=== PATIENT | female | born 1980 | race Caucasian/White ===

== ENCOUNTER 2017-08-27 04:39 | Emergency (ER) | payer BC ==
[~2017-08-27] VITALS: Ht 162.6 cm; Wt 90.7 kg
--- NOTE | 2017-08-27 04:52 | PHYS DOC ---
Adult General Chief Complaint Chief Complaint: CHEST PAIN HPI HPI Patient is a 37 year old female who presents with left-sided chest pressure and arm/shoulder pain on the left side. She states she had a little bit discomfort last night and then went to bed and woke up about an hour prior to arrival with the pain there. She states she felt short of breath when she ambulates her car. She is otherwise a pains been constant. She also felt sweaty when she woke up with this discomfort. She states nothing makes it better or worse at this time. She denies any nausea or vomiting. She states she does have a history of acid reflux and belching and is been taking antacids for this. She denies any fevers or chills. She states that she had some coronary disease in grandma and grandpa but nothing with her parents. She denies a history of smoking. Review of Systems Review of Systems Constitutional: Denies fever or chills [] Eyes: Denies change in visual acuity, redness, or eye pain [] HENT: Denies nasal congestion or sore throat [] Respiratory: Denies cough or shortness of breath [] Cardiovascular: No additional information not addressed in HPI [] GI: Denies abdominal pain, nausea, vomiting, bloody stools or diarrhea [] : Denies dysuria or hematuria [] Musculoskeletal: Denies back pain or joint pain [] Integument: Denies rash or skin lesions [] Neurologic: Denies headache, focal weakness or sensory changes [] Endocrine: Denies polyuria or polydipsia [] All other systems were reviewed and found to be within normal limits, except as documented in this note. Allergies Allergies Allergies Coded Allergies Type Severity Reaction Last Updated Verified No Known Drug Allergies 08/27/17 No Physical Exam Physical Exam Constitutional: Well developed, well nourished, no acute distress, non-toxic appearance. [] HENT: Normocephalic, atraumatic, bilateral external ears normal, oropharynx moist, no oral exudates, nose normal. [] Eyes: PERRLA, EOMI, conjunctiva normal, no discharge. [] Neck: Normal range of motion, no tenderness, supple, no stridor. [] Cardiovascular:Heart rate regular rhythm, no murmur [] Lungs & Thorax: Bilateral breath sounds clear to auscultation [] Abdomen: Bowel sounds normal, soft, no tenderness, no masses, no pulsatile masses. [] Skin: Warm, dry, no erythema, no rash. [] Back: No tenderness, no CVA tenderness. [] Extremities: No tenderness, no cyanosis, no clubbing, ROM intact, no edema. [] Neurologic: Alert and oriented X 3, normal motor function, normal sensory function, no focal deficits noted. [] Psychologic: Affect normal, judgement normal, mood normal. [] Current Patient Data Vital Signs Vital Signs Date Time Temp Pulse Resp B/P (MAP) Pulse Ox O2 Delivery O2 Flow Rate FiO2 08/27/17 07:14 95 16 145/84 (104) 99 Room Air 08/27/17 04:51 98.3 98.3 Lab Values Laboratory Tests Test 08/27/17 04:57 08/27/17 05:40 08/27/17 05:51 08/27/17 05:52 White Blood Count 7.5 x10^3/uL (4.0-11.0) Red Blood Count 4.75 x10^6/uL (3.50-5.40) Hemoglobin 13.9 g/dL (12.0-15.5) Hematocrit 42.1 % (36.0-47.0) Mean Corpuscular Volume 89 fL (79-100) Mean Corpuscular Hemoglobin 29 pg (25-35) Mean Corpuscular Hemoglobin Concent 33 g/dL (31-37) Red Cell Distribution Width 14.0 % (11.5-14.5) Platelet Count 327 x10^3/uL (140-400) Neutrophils (%) (Auto) 44 % (31-73) Lymphocytes (%) (Auto) 46 % (24-48) Monocytes (%) (Auto) 6 % (0-9) Eosinophils (%) (Auto) 3 % (0-3) Basophils (%) (Auto) 1 % (0-3) Neutrophils # (Auto) 3.3 x10^3uL (1.8-7.7) Lymphocytes # (Auto) 3.4 x10^3/uL (1.0-4.8) Monocytes # (Auto) 0.5 x10^3/uL (0.0-1.1) Eosinophils # (Auto) 0.2 x10^3/uL (0.0-0.7) Basophils # (Auto) 0.1 x10^3/uL (0.0-0.2) Sodium Level 137 mmol/L (136-145) Potassium Level 3.5 mmol/L (3.5-5.1) Chloride Level 104 mmol/L (98-107) Carbon Dioxide Level 23 mmol/L (21-32) Anion Gap 10 (6-14) Blood Urea Nitrogen 10 mg/dL (7-20) Creatinine 0.7 mg/dL (0.6-1.0) Estimated GFR (Cockcroft-Gault) 93.6 Glucose Level 89 mg/dL (70-99) Calcium Level 8.9 mg/dL (8.5-10.1) Magnesium Level 2.0 mg/dL (1.8-2.4) Total Bilirubin 0.4 mg/dL (0.2-1.0) Direct Bilirubin 0.1 mg/dL (0.0-0.2) Aspartate Amino Transferase (AST) 16 U/L (15-37) Alanine Aminotransferase (ALT) 17 U/L (14-59) Alkaline Phosphatase 74 U/L (46-116) Creatine Kinase 75 U/L (26-192) Creatine Kinase MB (Mass) < 0.5 ng/mL (0.0-3.6) Creatine Kinase MB Relative Index % (0-4) Troponin I Quantitative < 0.017 ng/mL (0.000-0.055) LB-Xnw-T-Type Natriuretic Peptide 38 pg/mL (0-124) Total Protein 7.5 g/dL (6.4-8.2) Albumin 3.7 g/dL (3.4-5.0) Lipase 172 U/L (73-393) Thyroid Stimulating Hormone (TSH) 2.939 uIU/mL (0.358-3.74) Prothrombin Time 12.7 SEC (11.7-14.0) Prothrombin Time INR 1.0 (0.8-1.1) D-Dimer (Ana) 0.38 ug/mlFEU (0.00-0.50) Urine Collection Type Unknown Urine Color Yellow Urine Clarity Clear Urine pH 6.0 Urine Specific [place] 1.010 Urine Protein Negative mg/dL (NEG-TRACE) Urine Glucose (UA) Negative mg/dL (NEG) Urine Ketones (Stick) Negative mg/dL (NEG) Urine Blood Negative (NEG) Urine Nitrite Negative (NEG) Urine Bilirubin Negative (NEG) Urine Urobilinogen Dipstick 0.2 mg/dL (0.2 mg/dL) Urine Leukocyte Esterase Negative (NEG) Urine RBC 0 /HPF (0-2) Urine WBC 0 /HPF (0-4) Urine Squamous Epithelial Cells Few /LPF Urine Bacteria 0 /HPF (0-FEW) Urine Opiates Screen Neg (NEG) Urine Methadone Screen Neg (NEG) Urine Barbiturates Neg (NEG) Urine Phencyclidine Screen Neg (NEG) Urine Amphetamine/Methamphetamine Neg (NEG) Urine Benzodiazepines Screen Pos (NEG) Urine Cocaine Screen Neg (NEG) Urine Cannabinoids Screen Neg (NEG) Urine Ethyl Alcohol Neg (NEG) POC Urine HCG, Qualitative Hcg negative (Negative) Laboratory Tests 08/27/17 04:57 Laboratory Tests 08/27/17 04:57 EKG EKG EKG shows sinus rhythm with rate of [address] elevations, T-wave inversion noted in lead 3, normal axis, QTC 434 ms, as interpreted by me. A previous EKGs for comparison[] Radiology/Procedures Radiology/Procedures [] Course & Med Decision Making Course & Med Decision Making Pertinent Labs and Imaging studies reviewed. (See chart for details) patient's care was turned over to me at 6 AM this morning pending troponin and d-dimer. Patient is pain that began yesterday afternoon described as chest pressure center of her chest. She has a history of reflux of which she just recently started treatment for Protonix. sHe feels markedly better over her evaluation. []Differential diagnosis for chest pain: Pericarditis, myocarditis, endocarditis , pneumothorax, pneumonia, aortic dissection, esophageal spasm, esophagitis, peptic ulcer disease, acute coronary syndrome, mediastinitis, Boerhaave syndrome , musculoskeletal chest wall pain, costochondritis, intercostal strain, rib fracture, pulmonary contusion, pneumonitis, pleural effusion, pericardial effusion, pericardial tamponode, and pleurisy. DTRs are read by me, chest x-ray is reviewed by me and laboratory work time is now 7:20 AM. Patient is pain-free she is noted to be intermittently tachycardic although she says this is chronic for her she has no symptoms at this time her heart rate is 86. She denied talked about risks factors. History: History patient is low risk with a score of 0 and can be discharged safely with cardiology follow-up. Denied discussed this plan and she is willing to do so. Highly suspicious 2 points moderately suspicious 1. slightly suspicious 0 point EKG: ST segment depression 2. nonspecific repolarization disturbance 1. normal 0 point Age: Greater than 65 2 points, 65-45 1., less than 45 years old 0 points Risk factors:> 3 risk factors 2 points, 1-2 risk factors one point, no risk factors 0 point Troponin: > 2 times normal 2 points, 1-2 times normal 1., normal limits 0 point Total score: Score % pts MACE/n MACE Policy 0-3 32% 1.9% 0.05% Discharge 4-6 51% 413/3136 13% 1.3% Observation Risk management 7-10 17% 518/1045 50% 2.8% Observation Treatment, CAG Dragon Disclaimer Dragon Disclaimer This electronic medical record was generated, in whole or in part, using a voice recognition dictation system. Departure Departure Impression: Primary Impression: Chest pain Disposition: HOME, SELF-CARE Condition: IMPROVED Referrals: NO PCP (PCP) Patient Instructions: Chest Pain (Nonspecific) Additional Instructions: My discharge plan Although you have low risk chest pain you May still have heart disease despite having an apparent negative workup today. I would advise that you follow-up with your primary care doctor this week to arrange follow-up with her eligibility and occupancy interviewer. The eligibility and occupancy interviewer will help stratify your risk for heart injury in the future. Follow up: In addition patient is asked to followup with their primary doctor, within a week for followup examination and to address patient's ongoing medical conditions. Because patient does not have a regular medical doctor, the [facility] Resource Sheet will be provided to establish care primary care. Patient is advised that in the Emergency Department primary complaints are addressed and only in light of known signs and symptoms. Patient should return immediately to the emergency department if new signs and symptoms develop or patient's condition worsens in any way. At time of discharge patient was in stable condition and had verbalized understanding of the discharge instructions. RAYMON MOSQUERA MD Aug 27, 2017 04:52 ANIBAL LUQUE MD Aug 27, 2017 07:26
[2017-08-27 05:10] LABS: BASO # 0.1 x10^3/uL (0.0-0.2); BASO % 1 % (0-3); EOS % 3 % (0-3); HEMATOCRIT 42.1 % (36.0-47.0); HEMOGLOBIN 13.9 g/dL (12.0-15.5); LYMPH # 3.4 x10^3/uL (1.0-4.8); LYMPH % 46 % (24-48); MEAN CORPUSCULAR HEMOGLOBIN 29 pg (25-35); MEAN CORPUSCULAR HGB CONC 33 g/dL (31-37); MEAN CORPUSCULAR VOLUME 89 fL (79-100); MONO % 6 % (0-9); NEUT % 44 % (31-73); PLATELET COUNT 327 x10^3/uL (140-400); RED BLOOD COUNT 4.75 x10^6/uL (3.50-5.40); WHITE BLOOD COUNT 7.5 x10^3/uL (4.0-11.0)
[2017-08-27 05:40] LABS: CALCIUM 8.9 mg/dL (8.5-10.1); CREATININE 0.7 mg/dL (0.6-1.0); GFR 93.6; POTASSIUM 3.5 mmol/L (3.5-5.1)
[2017-08-27 05:42] LABS: ALBUMIN 3.7 g/dL (3.4-5.0); DIRECT BILIRUBIN 0.1 mg/dL (0.0-0.2); TOTAL BILIRUBIN 0.4 mg/dL (0.2-1.0); TOTAL PROTEIN 7.5 g/dL (6.4-8.2)
[2017-08-27 05:58] LABS: CKMB MASS < 0.5 ng/mL (0.0-3.6); CREATINE KINASE 75 U/L (26-192)
[2017-08-27 06:08] LABS: PROTHROMBIN TIME PATIENT 12.7 SEC (11.7-14.0)
[2017-08-27 06:15] LABS: BARBITURATES NEG (NEG); BENZODIAZEPINES POS (NEG); BILIRUBIN,URINE NEGATIVE (NEG); CANNABINOIDS NEG (NEG); COCAINE NEG (NEG); GLUCOSE,URINE NEGATIVE (NEG); METHADONE NEG (NEG); NITRITE,URINE NEGATIVE (NEG); OPIATES NEG (NEG); PHENCYCLIDINE NEG (NEG); PROTEIN,URINE NEGATIVE (NEG-TRACE); UROBILINOGEN,URINE 0.2 mg/dL (0.2 mg/dL)
[2017-08-27 06:51] LABS: BACTERIA,URINE 0 /HPF (0-FEW); RBC,URINE 0 /HPF (0-2); SQUAMOUS EPITHELIAL CELL,UR FEW /LPF; WBC,URINE 0 /HPF (0-4)
[2017-08-27 07:14] VITALS: BP 145/84
--- NOTE | 2017-08-27 07:31 | EKG ---
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
--- NOTE | 2017-08-27 07:54 | RAD ---
PORTABLE CHEST 1V Clinical Indication: chest pain Comparison: None. Findings: Low lung volume. No focal consolidation. Normal pulmonary vasculature. No pleural effusion or pneumothorax. The cardiomediastinal silhouette and great vessels are normal. No acute osseous abnormality. IMPRESSION: No acute cardiopulmonary process.
== END 2017-08-27 07:44 | disposition home or self-care (01) ==
LOC: ER 04:39
DX: R07.89 Other chest pain (principal); M25.512 Pain in left shoulder; K21.9 Gastro-esophageal reflux disease without esophagitis
CPT/HCPCS: 36415; 71010; 80048; 80076; 80307; 81001; 81025; 82553; 83690; 83735; 83880; 84443; 84484; 85025; 85379; 85610; 93005; 99285-25; G0479